=== PATIENT | male | born 1990 | race Two or more races ===

== ENCOUNTER 2023-01-09 08:49 | Emergency (ER) | payer SELFPAY ==
[~2023-01-09] VITALS: Ht 170.2 cm; Wt 67.9 kg
[2023-01-09 09:36] VITALS: BP 135/88
[2023-01-09] MEDS ORDERED: CEPH500C PO (09:54)
[2023-01-09] MEDS ORDERED: TOB03OS OP (09:54)
== END 2023-01-09 10:00 | disposition home or self-care (01) ==
LOC: ER 08:49
DX: H00.014 Hordeolum externum left upper eyelid (principal)